=== PATIENT | female | born 1955 | race African-American/Black ===

== ENCOUNTER 2023-05-17 14:46 | Outpatient (CLI) | payer MEDICARE | END 2023-05-17 14:47 | disposition home or self-care (01) | LOC: CSHRAD 14:46 | PROVIDERS: ATTEND Neurological Surgery | DX: M54.12 Radiculopathy, cervical region (principal); Z98.1 Arthrodesis status | CPT/HCPCS: 72040 ==

== ENCOUNTER 2023-09-06 14:38 | Emergency (ER) | payer OTHER, MEDICARE ==
[~2023-09-06 14:38] MED LIST: Iopamidol 300 61% 100 ML VIAL FS ONE
[2023-09-06] MEDS ORDERED: Acetaminophen 325 MG TAB ONE (15:19)
[2023-09-06 15:38] LABS: #Basophils 0.1 10x3/uL (0.0-0.2); #Monocytes 0.5 10x3/uL (0.0-1.1); #Neutrophils 5.6 10x3/uL (1.5-8.4); %Eosinophils 10.5 % (0.0-6.0); %Lymphocytes 23.6 % (18.0-47.0); %Neutrophils 59.7 % (40.0-75.0); Hematocrit 31.6 % (34.9-44.5); Hemoglobin 9.8 g/dL (12.0-15.5); Mean Corpuscular Hemoglobin 22.3 pg (27.0-33.0); Mean Corpuscular Volume 71.8 fl (81.6-98.3); Mean Platelet Volume 9.5 fl (7.4-10.4); Platelet Count 331 10x3/uL (150-450); RBC Distribution Width 19.2 % (11.5-14.5); White Blood Cell (WBC) Count 9.3 10x3/uL (3.5-10.5)
[2023-09-06 15:55] LABS: Anisocytosis SLIGHT = 6-15 cells (100X) (0-5/hpf); Microcytosis SLIGHT = 6-15 cells (100X) (0-5/hpf); Platelet Adequacy Comment Appears Adequate
[2023-09-06 15:56] LABS: Hypochromia SLIGHT = 6-15 cells (100X) (0-5/hpf)
[2023-09-06 15:58] LABS: ALT (SGPT) 11 U/L (8-55); AST (SGOT) 18 U/L (5-34); Alkaline Phosphatase 87 U/L (40-110); Anion Gap 15 mmol/L (10-20); BUN (Urea Nitrogen) 14 mg/dL (9.8-20.1); Bilirubin, Total 0.6 mg/dL (0.2-1.2); Calc. Creatinine Clearance 0 mL/min (70-130); Calcium 9.9 mg/dL (7.8-10.44); Carbon Dioxide 22 mmol/L (23-31); Chloride 106 mmol/L (98-107); Estimated GFR 69; Globulin 4.3 g/dL (2.4-3.5); Glucose 96 mg/dL (80-115); Potassium 4.1 mmol/L (3.5-5.1); Protein, Total 8.3 g/dL (5.8-8.1); Sodium 139 mmol/L (136-145)
== END 2023-09-06 18:30 | disposition home or self-care (01) ==
LOC: CSHERS 14:38
DX: S39.012A Strain of muscle, fascia and tendon of lower back, initial encounter (principal); I10 Essential (primary) hypertension; Z87.891 Personal history of nicotine dependence; W01.0XXA Fall on same level from slipping, tripping and stumbling without subsequent striking against object, initial encounter
CPT/HCPCS: 74177; 80053; 85025; 94760; Q9967